=== PATIENT | female | born 2000 | race Two or more races ===

== ENCOUNTER 2021-11-27 21:25 | Emergency (ER) | payer MEDICAID ==
[~2021-11-27] VITALS: Ht 134.6 cm; Wt 56.7 kg
[2021-11-27 21:46] VITALS: BP 111/72
== END 2021-11-28 03:39 | disposition left against medical advice (07) ==
LOC: ER 21:52
DX: S01.21XA Laceration without foreign body of nose, initial encounter (principal); Z53.21 Procedure and treatment not carried out due to patient leaving prior to being seen by health care provider; X58.XXXA Exposure to other specified factors, initial encounter; Y93.89 Activity, other specified; Y92.89 Other specified places as the place of occurrence of the external cause; Y99.8 Other external cause status